=== PATIENT | female | born 1945 | race Caucasian/White ===

== ENCOUNTER 2016-07-10 14:45 | Emergency (ER) | payer OTHER | END 2016-07-10 17:53 | disposition home or self-care (01) | LOC: ER 14:45 | DX: T14.8 Other injury of unspecified body region (principal); S13.4XXA Sprain of ligaments of cervical spine, initial encounter; V43.52XA Car driver injured in collision with other type car in traffic accident, initial encounter; Y92.410 Unspecified street and highway as the place of occurrence of the external cause; I10 Essential (primary) hypertension; E11.9 Type 2 diabetes mellitus without complications | CPT/HCPCS: 70450; 70486; 71020; 72125; 73030; 99283; 99284-25 ==

== ENCOUNTER 2016-07-17 11:02 | Emergency (ER) | payer MEDICARE | END 2016-07-17 12:05 | disposition home or self-care (01) | LOC: ER 11:02 | DX: S05.02XA Injury of conjunctiva and corneal abrasion without foreign body, left eye, initial encounter (principal); V49.9XXS Car occupant (driver) (passenger) injured in unspecified traffic accident, sequela; Z98.42 Cataract extraction status, left eye; Z96.1 Presence of intraocular lens; E11.9 Type 2 diabetes mellitus without complications; I10 Essential (primary) hypertension; Z88.2 Allergy status to sulfonamides; Z88.5 Allergy status to narcotic agent; Z79.899 Other long term (current) drug therapy; Z79.82 Long term (current) use of aspirin; Z79.84 Long term (current) use of oral hypoglycemic drugs | CPT/HCPCS: 99070; 99282; 99283 ==